=== PATIENT | female | born 1940 | race Caucasian/White ===

== ENCOUNTER 2025-08-09 15:28 | Inpatient (IN) | payer MEDICARE, OTHER, SELFPAY ==
[2025-08-09 15:29] VITALS: BP 145/86; PULSE 79; RESP 14; TEMP 36.7; O2SAT 99; BMI 23.8
--- NOTE | 2025-08-09 15:55 | EDS_ITS ---
HPI History of Present Illness HPI Narrative: 84-year-old female history of CHF. No prior visits to this facility. [place] out of town. Today was shopping and tripped and fell injuring her right hip. No prior hip surgery. Has an abrasion to her right elbow but denies any other complaints. No head injury no LOC. Family was with her witness the fall. Chief Complaint: Lower Extremity Injury Informant: patient and family Occured/Mechanism Mechanism/Context: Yes injury and Yes blunt trauma Onset/Context/Timing Onset: Today Context: Sudden Onset Timing: Continuous Quality of Pain: Sharp Current Severity: Moderate Maximum Severity: Moderate Associated Symptoms Associated Symptoms: Negative for Parasthesia, Weakness or Loss of Funtion Narrative Narrative: 84-year-old female fell injured her right hip. Prior similar symptoms: No Recent Illness/Hospitalization: No PFSH PFSH Home Medications Medication Instructions Recorded Last Taken Type CBD Oral (INFORMATIONAL USE See Rx Instructions .Ro [place] .COMPLEX 08/09/25 Unknown History ONLY-PT USES ORAL CBD) biotin 1 mg capsule 1 mg PO DAILY 08/09/25 Unkno wn History duloxetine 60 mg capsule,delayed 60 mg PO DAILY Unknown History release empagliflozin 25 mg tablet 12.5 mg PO DAILY 08/09/25 U nknown History (Jardiance) ergocalciferol (vitamin D2) 1,000 1,000 mcg PO DAILY 1 Unknown History unit capsule famotidine 20 mg tablet 20 mg PO BID PRN acid reflux 08/09/25 Unknown History metoprolol succinate 25 mg 25 mg PO BID 08/09/25 Unkno wn History tablet,extended release 24 hr montelukast 10 mg tablet 10 mg PO DAILY 08/09/25 Unkn own History rosuvastatin 10 mg tablet 10 mg PO DAILY 08/09/25 Unkn own History sacubitril 49 mg-valsartan 51 mg 1 tab PO BID 08/09/25 Unknown History tablet (Entresto) spironolactone 25 mg tablet 25 mg PO QHS 08/09/25 Unkn own History torsemide 10 mg tablet 5 mg PO QHS 08/09/25 Unknown History Allergy/AdvReac Type Severity Reaction Status Date / Time Environmental Allergies: Allergy Mild PT UNSURE Verified 08/09/25 15:39 Uncoded OF REACTION Social History Smoking Status: Never smoker ROS ROS ED ROS Narrative Denies recent illness. Constitutional Constitutional ED: Denies chills or fever(s) Eyes Eyes: Denies blurry vision ENT ENT ED: Denies ear pain Cardiovascular Cardiovascular: Denies chest pain Respiratory/Chest Respiratory/Chest: Denies cough or dyspnea Gastrointestinal Gastrointestinal: Denies abdominal pain Genitourinary Genitourinary ED: Denies dysuria or hematuria Musculoskeletal Musculoskeletal: Denies arthralgias Integumentary Denies abscess or Abrasions Neurologic Neurologic: Denies headache(s) Psychiatric Psychiatric: Denies anxiety or depression Endocrine Endocrinology: Denies polydipsia Hematologic/Lymphatic Hematologic/Lymphatic: Denies easy bleeding or easy bruising Allergic/Immunologic Allergic/Immunologic ED: Denies mouth swelling, tongue swelling or urticaria EXAM Physical Exam Narrative Exam Narrative: 84-year-old female lying in bed. Daughter and granddaughter at bedside. Vital signs are stable afebrile. Pulse ox 9 9% on room air no signs of pox. H EENT exam pupils round react light. Moist mucous members. Neck nontender no JVD. No trauma to her face or scalp. Back nontender. Lungs clear to auscultation bilaterally. Heart regular rhythm rate about 80 no murmur. Chest wall ribs nontender. Abdomen soft nontender. Pelvic girdle intact. Right hip shortened and rotated. Tender to palpation. Very limited range of motion due to pain. Right distal thigh, knee, right lower leg ankle and foot nontender. Normal DP pulse. Able wiggle her toes. Normal touch sensation. Left lower extremity nontender normal range of motion no deformity. Upper extremities small abrasion right elbow but full flexion extension of the elbow. No deformity. Both shoulders wrists and hands are nontender with normal range of motion. Neurologically she is awake alert. Answering questions and following commands. Const Vital Signs: 08/09/25 15:29 Temperature 98.1 F Temperature Source Oral Pulse Rate 79 Respiratory Rate 14 Blood Pressure 145/86 H Blood Pressure Mean 105 Pulse Ox 99 Oxygen Delivery Method Room Air MDM MDM MDM Narrative Medical decision making narrative: 84-year-old female fell concern for right hip fracture. X-ray being obtained. IV morphine and Zofran for pain and improvement nausea. Screening labs to be obtained suspecting she will be admitted for right hip fracture and surgical repair. Repeat exam patient doing well at 4:45 PM. She is resting comfortably pain medication. Initially she wanted to be transferred to [facility] in [place]. I spoke to the orthopedic PA in [place]. They would except her but may not be able to do the surgery until Tuesday. Patient preferred to have it done sooner and decide to stay here. I spoke with orthopedic on-call he is excepted the patient. Hospitalist will admit the patient. History & Record Review Discussion w/independent historian: Patient and Family Additional record(s) reviewed:: No prior records Lab Data Attestation: I reviewed the patient's lab results. Lab results narrative: CBC unremarkable. White count 8. H&H 12 and 39. Platelets 261. PT/INR PTT are 13, 134. Chemistries show a gap of 11. BUN and creatinine of 31.7. Glucose 85. Blood type a positive. Labs: Laboratory Results - last 24 hr 08/09/25 16:00 WBC 8.3 RBC 4.05 L Hgb 12.6 Hct 39.3 MCV 97.0 MCH 31.1 MCHC 32.1 RDW Std Deviation 49.2 H RDW Coeff of Ora 13.8 Plt Count 261 MPV 9.6 Immature Gran % (Auto) 0.700 Neut % (Auto) 67.4 Lymph % (Auto) 19.0 [place] % (Auto) 8.8 Eos % (Auto) 3.6 Baso % (Auto) 0.5 Absolute Neuts (auto) 5.6 Absolute Lymphs (auto) 1.58 Nucleated RBC % 0 PT 13.7 INR 1.0 APTT 34.6 Sodium 136 Potassium 4.3 Chloride 100 Carbon Dioxide 24.8 Anion Gap 11 BUN 31 H Creatinine 0.78 Estim Creat Clear Calc 41.57 L Est GFR (MDRD) Non-Af 76 BUN/Creatinine Ratio 39.2 H Glucose 85 Calcium 8.9 Blood Type A POSITIVE Antibody Screen NEGATIVE Radiography Chest X-Ray - ED: 1 View, Read by ED Physician, Read by Radiologist, Heart, Mediastinum, Bony Structures and Chronic Changes Diagnostic Testing: Clinical Impression(s) from Imaging Studies Chest X-Ray 08/09/25 16:05 IMPRESSION: Diffuse pulmonary vascular congestion and small right pleural effusion, superimposed consolidation not excluded. Reading Location: [facility] Hip/Pelvis X-Ray 08/09/25 16:05 IMPRESSION: Acute intertrochanteric right femoral fracture. Reading Location: [facility] Right hip x-ray and pelvis, 3 views, interpreted by myself shows right hip basicervical hip fracture. Otherwise chronic changes. Preop chest x-ray shows chronic changes. Normal cardiac silhouette. Chronic lung changes but no acute process. No effusion. No pneumonia. Rhythm Strip Rhythm Strip: Sinus bradycardia Rate: 58 Ectopy: None EKG Initial EKG: Attestation: I personally reviewed and interpreted this EKG as follows: Interpretation: No Acute Injury Pattern and Sinus Bradycardia Comments: Sinus bradycardia rate of 58 no acute signs of DC or ischemia. No dysrhythmia. Prior: No Prior Discharge Plan Dx/Rx/DC Orders Clinical Impression: Fall, Closed fracture of right hip, History of CHF (congestive heart failure) Disposition Disposition: Acute Care Hospital [facility]
--- NOTE | 2025-08-09 15:59 | EKG12_ITS ---
Test Reason : O Blood Pressure : */* mmHG Vent. Rate : 58 BPM Atrial Rate : 58 BPM P-R Int : 160 ms QRS Dur : 82 ms QT Int : 448 ms P-R-T Axes : 86 80 73 degrees QTcB Int : 439 ms Sinus bradycardia Otherwise normal ECG Confirmed by ISABELA KERNS, CATE ([id number]), story editor DUDLEY ROCHA ([id number]) on 08/12/2025 9:15:23 AM Referred By: Confirmed By: CATE MAR MD
--- NOTE | 2025-08-09 16:05 | RAD_ITS ---
PROCEDURE: HIP, UNI W/ PELVIS 2-3 VIEWS 08/09/2025 REASON FOR EXAM: FALL AND RT HIP PAIN TECHNIQUE: Procedure Code: RAD Modality: DX Procedure: HIP, UNI W/ PELVIS 2-3 VIEWS Laterality: Right COMPARISON: None. FINDINGS: BONES: Acute fracture in the intertrochanteric region of the proximal right femur. No focal osseous lesion. JOINTS: No dislocation. Moderate arthritic changes of the hips bilaterally. SOFT TISSUES: Mild swelling in the right hip soft tissues. RAD/HIP, UNI W/ Pelvis 2-3 Views IMPRESSION: Acute intertrochanteric right femoral fracture. Reading Location: [id number]
--- NOTE | 2025-08-09 16:05 | RAD_ITS ---
PROCEDURE: CHEST 1 VIEW 08/09/2025 REASON FOR EXAM: POSSIBLE PRE OP TECHNIQUE: Frontal view of the chest. COMPARISON: None available. FINDINGS: Hardware: None. Heart: The heart size is normal. Lungs: Small right pleural effusion, superimposed consolidation not excluded. Diffuse pulmonary vascular congestion. No definite pneumothorax Bones: The bones are unremarkable. RAD/Chest 1 View IMPRESSION: Diffuse pulmonary vascular congestion and small right pleural effusion, superim posed consolidation not excluded. Reading Location[facility]
[2025-08-09 16:18] LABS: Hematocrit 39.3 % (37-47); Hemoglobin 12.6 g/dL (12.0-15.0); Immature Granulocytes Count 0.060 X10^3/uL (0.0-0.0); Mean Corp Hgb Conc 32.1 g/dL (32-36); Mean Corpuscular Volume 97.0 fL (81-99); Mean Platelet Vol. 9.6 fl (6.2-12.0); NRBC Flagged by Analyzer 0 % (0-5); Platelet Count 261 K/mm3 (150-450); RBC Distribution Width CV 13.8 % (11.6-14.6); RBC Distribution Width SD 49.2 fl (35.1-43.9); Red Blood Count 4.05 M/mm3 (4.2-5.4); White Blood Count 8.3 K/mm3 (4.4-11.0)
[2025-08-09 16:34] LABS: Prothrombin Time (Protime)PT. 13.7 SECONDS (11.7-14.9)
[2025-08-09 16:35] LABS: Partial Thromboplast Time 34.6 Seconds (24.1-36.2)
[2025-08-09 17:18] LABS: Anion Gap 11 (5-15); BUN 31 mg/dL (4-19); BUN/Creat Ratio 39.2 RATIO (10-20); Calcium,Total 8.9 mg/dL (7.6-11.0); Carbon Dioxide 24.8 mmol/L (21.0-32.0); Chloride 100 mmol/L (98-108); Estimated Creatinine Clearance 41.57 ml/min (50-250); Glucose 85 mg/dL (70-99); Potassium 4.3 mmol/L (3.3-5.1)
--- NOTE | 2025-08-09 17:20 | HP.PCM.HOS_ITS ---
HPI - General General Date of Admission: 08/09/25 Date of Service: 08/09/25 Chief Complaint: Fall with right hip pain HPI Narrative SHEA CHAUHAN, is a 84 F who presented to [facility] ED on 08/09/2025 with right hip pain after a fall. Patient lives at home alone in the [place] area, has a daughter that lives in the [place] area. Her medical history is significant for chronic HFpEF, hypertension, hyperlipidemia, GERD and anxiety/depression. Patient was shopping with her daughter today when she tripped and fell onto her right side when getting back into the car. She had significant right hip pain after the fall. In the ED, hip/pelvis x-ray confirmed an acute intertrochanteric right femoral fracture. She was mildly hypertensive to the 140s systolic but otherwise in normal sinus rhythm and stable on room air at rest. CBC and BMP were benign. Chest x-ray read as showing diffuse pulmonary vascular congestion and small right pleural effusion. BNP normal. Case was discussed with orthopedics who recommended admission with tentative plan for surgery tomorrow. Hospitalist was then contacted for admission. I saw the patient at bedside in the ED. Patient was laying back flat in bed and was conversing normally. She reported significant right hip pain with any movement and was remaining quite still. She was diagnosed with HFpEF about 2 years ago and follows with cardiology in [place]. Notes that she had a significant right pleural effusion when she was initially diagnosed requiring thoracentesis, but since then her heart failure has been well- controlled on her home medication regimen. She denies any chest pain, shortness of breath or lower extremity swelling recently. Denies any orthopnea recently. She denies any other acute concerns currently. Will be admitted for further management. [facility] Cardiology office note from 07/02/25: Shea Chauhan is a 84 y.o. female presents today for her month follow up visit at the heart failure clinic for HFpEF which was likley a right pleural effusion in April 2023. She has had enlarged LAE and some tricuspid regurg in the past as well. Her weight is 106#, stable since last chf clinic visit 01/22/2025 (GDMT for HFpEF) Cardiac Medications include: (meds PRIOR to office visit 07/02/2025, changes listed under PLAN below) Empagliflozin 12.5 mg daily* Metoprolol suc 25 mg twice daily Potassium 20 meq daily Rosuvastatin 10 mg daily Entrestro 49/51 mg twice a day Spironolactone 25 mg daily Torsemide 10 mg daily PLAN Increase protein in the diet (we discussed different sources- ex, lao yogurt, protein powder in a smoothie, [employer] Power protein drinks (low carb, high protein)- making smoothies. Nuts, meat, salmon, etc. Decrease torsemide to 10 mg every other day and see how you feel. Jardiance should keep the fluid off. Hyperlipidemia- Rosuvastatin 10 mg daily-legs ache 05/17/2025 TC 163, Trig 80, HDL 45, LDL 102 12/19/2023 Echocardiogram 1. Technically fair quality study. 2. Normal left ventricular size and systolic function with LVEF by biplane measurement 71%. 3. Normal right ventricular size and systolic function. 4. Moderate left atrial enlargement. 5. Thickened/calcified degenerative valve disease without hemodynamically significant stenosis or regurgitation. 6. Normal pulmonary artery pressures with estimated RVSP 29 mmHg. [facility] Medical History (Updated 08/09/25 @ 18:36 by Arielle Taylor) Diverticulitis Hearing loss, left Hearing loss, right Depression Anxiety Osteoporosis Congestive heart failure (CHF) Hypertension Home Medications Medication Instructions Recorded Last Taken Type CBD Oral (INFORMATIONAL USE See Rx Instructions .Ro [place] .COMPLEX 08/09/25 Unknown History ONLY-PT USES ORAL CBD) biotin 1 mg capsule 1 mg PO DAILY 08/09/25 Unkno wn History duloxetine 60 mg capsule,delayed 60 mg PO DAILY Unknown History release empagliflozin 25 mg tablet 12.5 mg PO DAILY 08/09/25 U nknown History (Jardiance) ergocalciferol (vitamin D2) 1,000 1,000 mcg PO DAILY 1 Unknown History unit capsule famotidine 20 mg tablet 20 mg PO BID PRN acid reflux 08/09/25 Unknown History metoprolol succinate 25 mg 25 mg PO BID 08/09/25 Unkno wn History tablet,extended release 24 hr montelukast 10 mg tablet 10 mg PO DAILY 08/09/25 Unkn own History rosuvastatin 10 mg tablet 10 mg PO DAILY 08/09/25 Unkn own History sacubitril 49 mg-valsartan 51 mg 1 tab PO BID 08/09/25 Unknown History tablet (Entresto) spironolactone 25 mg tablet 25 mg PO QHS 08/09/25 Unkn own History torsemide 10 mg tablet 5 mg PO QHS 08/09/25 Unknown History Allergy/AdvReac Type Severity Reaction Status Date / Time Environmental Allergies: Allergy Mild PT UNSURE Verified 08/09/25 15:39 Uncoded OF REACTION Social History Smoking Status: Never smoker ROS Constitutional Constitutional: Denies chills, fatigue or fever(s) Eyes Eyes: Denies change in vision Cardiovascular Cardiovascular: Denies chest pain, dyspnea on exertion, edema, lightheadedness, orthopnea or palpitations Respiratory/Chest Respiratory/Chest: Denies shortness of breath at rest Gastrointestinal Gastrointestinal: Denies abdominal pain Genitourinary Genitourinary: Denies dysuria Musculoskeletal Musculoskeletal: Reports joint pain; Denies myalgias Neurologic Neurologic: Denies dizziness, focal weakness, headache(s), numbness or tingling Vital Signs Vital Signs Vital Signs: 08/09/25 15:29 Temperature 98.1 F Temperature Source Oral Pulse Rate 79 Respiratory Rate 14 Blood Pressure 145/86 H Blood Pressure Mean 105 Pulse Ox 99 Oxygen Delivery Method Room Air Weight Weight: 55.3 kg Body Mass Index (BMI) 23.8 Physical Exam Const alert, oriented x3, no apparent distress and average body habitus Constitutional Narrative: Pleasant elderly female, mildly fatigued appearing, laying back flat in bed and remaining still due to right hip pain with movement, otherwise conversing normally. General Appearance: cooperative HEENT normocephalic, head/scalp atraumatic, hearing grossly normal bilaterally, nasal mucous membranes and turbinates normal and moist oral mucous membranes Eyes PERRL, EOMs intact bilaterally and conjunctivae normal Neck full ROM Chest inspection of chest normal Resp normal respiratory effort and no use of accessory muscles Resp Narrative: Breathing comfortably on room air at rest. Mild crackles noted in bilateral lung bases but otherwise good air movement throughout with no wheezing noted. Cardio regular rate, regular rhythm, no murmurs and peripheral pulses 2+ throughout GI normal to inspection, nondistended, normoactive bowel sounds, soft to palpation, non-tender and non-distended Back/Spine normal ROM Extremity Extremity Narrative: Right hip shortened and rotated. Moderate tenderness to palpation on the lateral hip area. Skin no rashes or lesions noted Psych mental status grossly normal Results Lab / Micro Data 08/09/25 16:00 08/09/25 16:00 Labs: Laboratory Results - last 24 hr 08/09/25 16:00: WBC 8.3, RBC 4.05 L, Hgb 12.6, Hct 39.3, MCV 97.0, MCH 31.1, MCHC 32.1, RDW Std Deviation 49.2 H, RDW Coeff of Ora 13.8, Plt Count 261, MPV 9.6, Immature Gran % (Auto) 0.700, Neut % (Auto) 67.4, Lymph % (Auto) 19.0, [place] % (Auto) 8.8, Eos % (Auto) 3.6, Baso % (Auto) 0.5, Absolute Neuts (auto) 5.6, Absolute Lymphs (auto) 1.58, Nucleated RBC % 0, PT 13.7, INR 1.0, APTT 34.6, Sodium 136, Potassium 4.3, Chloride 100, Carbon Dioxide 24.8, Anion Gap 11, BUN 31 H, Creatinine 0.78, Estim Creat Clear Calc 41.57 L, Est GFR (MDRD) Non-Af 76, BUN/Creatinine Ratio 39.2 H, Glucose 85, Calcium 8.9, Blood Type A POSITIVE, Antibody Screen NEGATIVE Rhythm Strip Rhythm Strip: Sinus bradycardia Rate: 58 Ectopy: None Imaging Radiology Impression Chest X-Ray 08/09/25 16:05 IMPRESSION: Diffuse pulmonary vascular congestion and small right pleural effusion, superimposed consolidation not excluded. Reading Location: [facility] Assessment & Plan Assessment/Plan (1) Closed fracture of right hip: QUALIFIERS: Encounter type: initial encounter Qualified Code(s): S72.001A - Fracture of unspecified part of neck of right femur, initial encounter for closed fracture PLAN: Plan Patient is an 84-year-old female who presented to [facility] ED on 08/09/2025 with right hip pain after a fall. 1. Right hip fracture – Admit under inpatient status to [facility]. Orthopedic surgery consulted. PT/OT/case management consulted. Hip/pelvis x-ray on admit showed an acute intertrochanteric right femoral fracture. Preoperative evaluation as below. N.p.o. midnight with plan for surgery tomorrow. Pain control with scheduled Tylenol, p.o. oxycodone as needed and IV Dilaudid as needed. Bowel regimen ordered. Vitamin D level ordered. 2. Preoperative evaluation – NSQIP score: Patient has below average risk of any complication or serious complication given risk factors of age, female, mild systemic disease, hypertension and BMI 20. Has an average risk of discharge to nursing or rehab facility. – Labs/imaging: CBC and BMP benign on admit. Hemoglobin 12.6, creatinine 0.78. INR 1.0. Chest x-ray with mild volume overload, see cardiac eval below. No further labs or imaging needed preoperatively. – Cardiac eval: History of chronic HFpEF as below. Stable on room air in the ED with saturations in the mid to high 90s and laying flat in bed with no shortness of breath. No lower extremity swelling noted. Chest x-ray shows apparent diffuse pulmonary vascular congestion, but BNP is normal. Suspect patient could have mild degree of pulmonary edema in setting of chronic heart failure but low concern for severe vascular congestion. Last echo in 11/2023 with EF 70%, normal LV size and function, normal RV size and function, no pulmonary hypertension noted, moderate LA enlargement, no other concerning findings. Last outpatient appointment with cardiology on 07/02 and heart failure was stable then, no medication changes made. Patient denies any cardiac events since then. Will give patient 1 dose of IV Lasix 20 mg this evening. EKG showed normal sinus rhythm, no ST changes. Holding cardiac medications as below. No further cardiac testing needed preoperatively. – Medications: Will hold home Entresto, empagliflozin, torsemide and spironolactone preoperatively to minimize risk of intraoperative hypotension. Should be okay to restart postoperatively. – Prior procedural complications: None. – Recommendation: Patient is medically optimized for procedure. 3. Chronic HFpEF, hypertension, hyperlipidemia – Follows with cardiology at [facility]. Last office visit on 07/02/2025, reviewed note in [facility]. Diagnosed with HFpEF in 2022 when she presented with a large right-sided pleural effusion requiring thoracentesis. Heart failure has been well-controlled since that time. Normotensive in the ED on this admission. Holding Entresto, empagliflozin, torsemide and spironolactone preoperatively as above. Okay to continue home Toprol and rosuvastatin perioperatively. 4. GERD – Stable. Continue home famotidine. 5. Anxiety/depression – Stable. Continue home duloxetine. DVT prophylaxis: SCDs, will defer to orthopedics postoperatively CODE STATUS: Full code, verified Expected disposition: TBD Total clinical time spent by myself addressing the patient's medical issues, reviewing all the data, and collaborating with patient's care team: 78 minutes. Charges/Coding Visit Charges Inpatient E&M: 70135 Init Hosp L3
[2025-08-09 17:55] VITALS: BP 128/59; PULSE 79; RESP 14; TEMP 36.7; O2SAT 99
--- NOTE | 2025-08-09 18:19 | CONS.ORTHO ---
HPI Consult Data Date of Consult: 08/09/25 HPI Narrative Reason for Consultation: Right hip fracture HPI Narrative: BOOKER SERRANO, is a 84 F who presents to [facility] after a mechanical fall from standing height. She was out having lunch with family and was getting in her car, lost her balance and fell on her right side. She scraped her elbow and noted immediate pain in her right hip. She knew her hip was broken immediately. She denied any head injury, loss of consciousness or presyncopal symptoms. She denied any problems with her right hip prior to the injury. Community ambulator without assistive device. Past medical history significant for CHF. She follows with a cardiology group in [place]. She states her most recent checkups have been good without any recent exacerbations. She denies any anesthesia right hip or groin pain. Denies any prior anesthetic complications. Takes no blood thinners. No history of DVT or PE. She was brought to the emergency department x-rays revealed a right intertrochanteric femur fracture. She was admitted under her service to hospitalist. I saw the patient in consultation in the emergency department. Reports right hip pain otherwise denies any new symptoms. [facility] Home Medications Medication Instructions Recorded Last Taken Type CBD Oral (INFORMATIONAL USE See Rx Instructions .Route .COMPLEX 08/09/25 Unknown History ONLY-PT USES ORAL CBD) biotin 1 mg capsule 1 mg PO DAILY 08/09/25 Unknown History duloxetine 60 mg capsule,delayed 60 mg PO DAILY 08/09/25 Unknown History release empagliflozin 25 mg tablet 12.5 mg PO DAILY 08/09/25 Unknown History (Jardiance) ergocalciferol (vitamin D2) 1,000 1,000 mcg PO DAILY 08/09/25 Unknown History unit capsule famotidine 20 mg tablet 20 mg PO BID PRN acid reflux 08/09/25 Unknown History metoprolol succinate 25 mg 25 mg PO BID 08/09/25 Unknown History tablet,extended release 24 hr montelukast 10 mg tablet 10 mg PO DAILY 08/09/25 Unknown History rosuvastatin 10 mg tablet 10 mg PO DAILY 08/09/25 Unknown History sacubitril 49 mg-valsartan 51 mg 1 tab PO BID 08/09/25 Unknown History tablet (Entresto) spironolactone 25 mg tablet 25 mg PO QHS 08/09/25 Unknown History torsemide 10 mg tablet 5 mg PO QHS 08/09/25 Unknown History Allergy/AdvReac Type Severity Reaction Status Date / Time Environmental Allergies: Allergy Mild PT UNSURE Verified 08/09/25 15:39 Uncoded OF REACTION Social History Smoking Status: Never smoker ROS ROS Narrative 12 point review systems obtained, negative unless otherwise noted in HPI. Vital Signs Vital Signs Vital Signs: 08/09/25 15:29 08/09/25 17:55 Temperature 98.1 F 98.1 F Temperature Source Oral Pulse Rate 79 79 Respiratory Rate 14 14 Blood Pressure 145/86 H 128/59 H Blood Pressure Mean 105 82 Pulse Ox 99 99 Oxygen Delivery Method Room Air Weight Weight: 121 lb 14.65 oz Body Mass Index (BMI) 23.8 Physical Exam Narrative General -A&Ox3, NAD, appears stated age. Vital signs stable, afebrile. Respiratory -normal work of breathing, no intercostal retractions. CV -pulses regular, brisk capillary refill ×4 limbs. Abdomen-soft, nontender, nondistended. No guarding, rigidity, rebound tenderness. Musculoskeletal/neurologic -full range of motion nontender throughout bilateral upper extremities, left lower extremity with full sensation and strength in all dermatomes and myotomes. No midline cervical tenderness. Right lower extremity-shortened, externally rotated and abducted. Pain with logroll of the left lower extremity. Nontender throughout the right knee femoral shaft, tibial shaft and right foot/ankle. Brisk capillary refill. Sensation intact light touch L3-S1 dermatomes. DF, PF, EHL intact. DP, PT 2+. Pelvis is stable, nontender. Skin is intact without lacerations, abrasions. No ecchymosis noted. Lab / Micro Data Attestation: I reviewed the patient's lab results. 08/09/25 16:00 08/09/25 16:00 Labs: Laboratory Results - last 24 hr 08/09/25 16:00: WBC 8.3, RBC 4.05 L, Hgb 12.6, Hct 39.3, MCV 97.0, MCH 31.1, MCHC 32.1, RDW Std Deviation 49.2 H, RDW Coeff of Ora 13.8, Plt Count 261, MPV 9.6, Immature Gran % (Auto) 0.700, Neut % (Auto) 67.4, Lymph % (Auto) 19.0, [place] % (Auto) 8.8, Eos % (Auto) 3.6, Baso % (Auto) 0.5, Absolute Neuts (auto) 5.6, Absolute Lymphs (auto) 1.58, Nucleated RBC % 0, PT 13.7, INR 1.0, APTT 34.6, Sodium 136, Potassium 4.3, Chloride 100, Carbon Dioxide 24.8, Anion Gap 11, BUN 31 H, Creatinine 0.78, Estim Creat Clear Calc 41.57 L, Est GFR (MDRD) Non-Af 76, BUN/Creatinine Ratio 39.2 H, Glucose 85, Calcium 8.9, Blood Type A POSITIVE, Antibody Screen NEGATIVE Rhythm Strip Rhythm Strip: Sinus bradycardia Rate: 58 Ectopy: None Imaging Radiology Impression Chest X-Ray 08/09/25 16:05 IMPRESSION: Diffuse pulmonary vascular congestion and small right pleural effusion, superimposed consolidation not excluded. Reading [facility] Hip/Pelvis X-Ray 08/09/25 16:05 IMPRESSION: Acute intertrochanteric right femoral fracture. Reading Location: [facility] Assessment & Plan Assessment/Plan (1) Closed fracture of right hip: QUALIFIERS: Encounter type: initial encounter Qualified Code(s): S72.001A - Fracture of unspecified part of neck of right femur, initial encounter for closed fracture PLAN: Patient sustained a right intertrochanteric proximal femur fracture. -Closed, neurovascularly intact -Isolated injury -Recommending surgical intervention in the form of right femur cephalomedullary nailing -I discussed the procedure-its risks, benefits and alternative. Risks include but are not limited to bleeding, infection, loss of life or limb, risk of anesthesia, persistent pain or disability, need for additional surgery, nonunion, malunion, failure of orthopedic hardware, neurovascular injury, DVT or PE. Patient expressed understanding these risks and wished proceed with surgery. -Maintenance IV fluids, clear liquid diet after midnight n.p.o. at 2 hours prior to surgery -Type and screen -2 g Ancef on-call to the OR -Bedrest, heel protectors - Plan for surgery likely tomorrow pending optimization from primary. Thank you for this consultation.
[2025-08-09 18:30] VITALS: BMI 20.6
[2025-08-09 18:44] VITALS: BP 125/57; PULSE 64; RESP 16; TEMP 37.1; O2SAT 96
[2025-08-09 18:45] VITALS: BP 125/57; PULSE 69; RESP 16; TEMP 37.1; O2SAT 96
[2025-08-09 18:59] LABS: Pro- Brain NATRIURETIC PEPTIDE 569 pg/mL (<=1800)
[2025-08-09] MEDS: HYDROmorphone 0.5 MG/0.5 ML SYRINGE IV (20:01)
[2025-08-09 21:22] LABS: AST(SGOT) 21 U/L (<=31); Alanine Aminotransfer ALT/SGPT 17 U/L (<=34); Albumin, Serum 3.9 g/dL (3.4-4.8); Alkaline Phosphatase 71 U/L (35-104); Anion Gap 12 (5-15); BUN 26 mg/dL (4-19); BUN/Creat Ratio 36.2 RATIO (10-20); Calcium,Total 8.9 mg/dL (7.6-11.0); Carbon Dioxide 21.9 mmol/L (21.0-32.0); Chloride 102 mmol/L (98-108); Estimated Creatinine Clearance 38.27 ml/min (50-250); Globulin 3.4 g/dL (2.2-4.2); Glucose 105 mg/dL (70-99); Potassium 4.8 mmol/L (3.3-5.1)
[2025-08-09] MEDS: Senna/Docusate Sodium 1 Tablet 2 TABLET PO (22:13)
[2025-08-09 22:14] VITALS: BP 117/60; PULSE 66
[2025-08-09] MEDS: Metoprolol(XL)Succ 25 MG Tablet PO (22:14)
[2025-08-09] MEDS: Furosemide 20 MG/2 ML VIAL IV (22:23)
[2025-08-09 23:00] VITALS: BP 117/66; PULSE 62; RESP 16; TEMP 36.6; O2SAT 97
[2025-08-10] VITALS (21 sets, daily range): BP systolic 108–179; BP diastolic 55–84; PULSE 65–86; RESP 14–19; TEMP 36.1–37.2; O2SAT 91–100; BMI 20.6
[2025-08-10] MEDS: HYDROmorphone 0.5 MG/0.5 ML SYRINGE IV ×2 (00:17→06:48)
[2025-08-10 04:41] LABS: Hematocrit 40.3 % (37-47); Hemoglobin 13.2 g/dL (12.0-15.0); Mean Corp Hgb Conc 32.8 g/dL (32-36); Mean Corpuscular Volume 96.2 fL (81-99); Mean Platelet Vol. 9.6 fl (6.2-12.0); Platelet Count 257 K/mm3 (150-450); RBC Distribution Width CV 14.0 % (11.6-14.6); RBC Distribution Width SD 50.1 fl (35.1-43.9); Red Blood Count 4.19 M/mm3 (4.2-5.4); White Blood Count 12.1 K/mm3 (4.4-11.0)
[2025-08-10 04:58] LABS: Anion Gap 12 (5-15); BUN 27 mg/dL (4-19); BUN/Creat Ratio 31.7 RATIO (10-20); Calcium,Total 8.9 mg/dL (7.6-11.0); Carbon Dioxide 22.6 mmol/L (21.0-32.0); Chloride 102 mmol/L (98-108); Estimated Creatinine Clearance 35.19 ml/min (50-250); Glucose 121 mg/dL (70-99); Potassium 5.0 mmol/L (3.3-5.1)
[2025-08-10] MEDS: 0.9% Saline Lock 10 ML Syringe IV (06:48)
[2025-08-10] MEDS: 0.9% Normal Saline (1000mL) 1,000 ML 50 ML IV (09:25)
--- NOTE | 2025-08-10 09:26 | NURSING ---
Report given to surgery. This RN called Joce from pharmacy to inform him to send Cefazolin and Transexmic Acid Sent to OR.
--- NOTE | 2025-08-10 09:35 | CASEMGMT ---
Social Work SW met w/pt and then family, reviewed prior level of function and anticipated discharge plan. Pt's daughter Tanya, son Hemant and daughter in law Eunice are all present. PCP: Alonzo Echeverria Specialists: Dr. Briggs--orthopedics, [facility] Pharmacy: [facility] Insurance/Prescription Benefit: Medicare/Assurance Living Will/HPOA: Pt states has completed, thinks Brittany is POA and then Hemant, then Tanya. SW asked both pt and family to bring in documents. LNOK: Pt has six children Living Arrangements/Prior level of function: Pt lives home alone in [place], 5-6 steps into the home depending on the entrance. (5 in front, 6 in garage). Pt states there are another 5 steps to her bedroom. Pt is independent with ADLs, does have someone who helps w/cleaning. Pt still drives. MH: History of anxiety, on Celexa, she states it helps and was thinking of going off the medication. She states her physician encouraged her to stay on it through the weekend. Substance Use: No history DME: Pt has some DME from her late . She has a walker, has a cane she just purchased. Pt states she is remodelling her bathroom at present. HHC/SNF: No history of either. Pt states her had HHC in the past. PLAN: SNF vs Rehab. AUGUSTUS provided lists to family and pt from [facility] of both SNF and acute rehab, in both the [place] and [place] area, complete w/quality and resource use data, and in pt's insurance network. SW educated pt and family on the two levels of care. Family does think pt can do acute rehab. SW explained to pt and family we will see how pt does with therapy after surgery, see what is recommended and make the appropriate referrals. SW asked pt and family to pick three options for each level of care, and SW to follow up on Tuesday. CHENCHO Burnette
--- NOTE | 2025-08-10 10:00 | RAD_ITS ---
PROCEDURE: HIP MIN 2 VIEWS (PORTABLE) 08/10/2025 REASON FOR EXAM: RT HIP GAMMA NAIL TECHNIQUE: Procedure Code: RADH_P Modality: DX Procedure: HIP MIN 2 VIEWS (PORTABLE) Laterality: Right COMPARISON: Right hip x-ray 08/09/2025. FINDINGS: Bones: Intraoperative view of surgical correction of right femoral fracture with metallic hardware. Joints: The hip joint is well alignment. Soft tissues: No soft tissue abnormalities. Fluoro time: 29.2 seconds. RAD/Hip Min 2 Views (Portable) IMPRESSION: Intraoperative view of surgical correction of right femoral fracture with metal lic hardware. Near anatomical alignment. Reading Location: [id number]
--- NOTE | 2025-08-10 10:06 | PCM.PRE.AN2 ---
ASA Classification* ASA Classification ASA Classification: 3 Assessment & Plan Anesthesia* Anesthesia Assessment Anesthesia Assessment: Discussed sedation and/or anesthesia options, risks, benefits, and alternatives with patient/parents/legal guardian/POA. Questions invited. The patient/parents/legal guardian/POA seems to understand and agrees to proceed with anesthesia plan. Reviewed the physical assessment, medical history, allergy history and patient home medications list prior to surgery/procedure/anesthetic and documented any changes. Performed airway and anesthesia risk assessments. Anesthesia Type Anesthesia Type: General Anesthesia Focused Assessment* Temperature: 98.0 F Pulse Rate: 66 Blood Pressure: 108/55 Respiratory Rate: 18 Pulse Ox: 98 Oxygen Flow Rate (L/min): 2 Airway Assessment Mouth opens: >3 cm Mallampati Score: II Labs Anesthesia Preop lab: CBC WBC, (4.4-11.0) 12.1 K/mm3 H Today, 04:27 RBC, (4.2-5.4) 4.19 M/mm3 L Today, 04:27 Hgb, (12.0-15.0) 13.2 g/dL Today, 04:27 Hct, (37-47) 40.3 % Today, 04:27 Plt Count, (150-450) 257 K/mm3 Today, 04:27 CHEMISTRY Potassium, (3.3-5.1) 5.0 mmol/L Today, 04:27 Sodium, (133-145) 137 mmol/L Today, 04:27 BUN, (4-19) 27 mg/dL H Today, 04:27 Creatinine, (0.70-1.20) 0.87 mg/dL Today, 04:27 Glucose, (70-99) 121 mg/dL H Today, 04:27 COAG PT, (11.7-14.9) 13.7 SECONDS 08/09/25, 16:00 Pre-Assessment Diagnosis/Proposed Procedure Planned Operative Procedure(s): ORIF of Right Hip FX Anesthesia History Anesthesia History - machine molder: Anesthesia History - machine molder Hx Hospitalization Any Problems With Anesthesia No 08/09/25 18:50 Cholinesterase deficiency No 08/09/25 18:50 You/Your Family Experience No 08/09/25 18:50 fever (hyperthermia) with Relationship Recent Exposure to Contagious No 08/09/25 18:50 Disease Does patient have nerve No 08/09/25 18:50 stimulator Patient instructed to have No 08/09/25 18:50 device shut off --Does patient have Pacemaker No 08/10/25 08:36 or ICD? When Was Last Pacemaker Check QUESTION #4 FULL TEXT: You/Your Family Experience fever (hyperthermia) with Anesthesia Last Oral Intake Last Oral intake: Last Oral Intake NPO since Meds taken in AM with sips of water? Meds patient instructed to take am of surgery PONV PONV - machine molder: PONV - machine molder Female HX of Motion Sickness HX of N/V After Surgery Non-Smoker Duration of Surgery greater than 60 minutes Number of Risk Factors PONV Score Height & Weight Height & Weight: Anesthesia: Height & Weight Height 5 ft 08/10/25 08:36 Weight: 47.854 kg 08/10/25 08:36 Body Mass Index (BMI) 20.6 08/10/25 08:36 Respiratory Assessment Respiratory Assessment - machine molder: Respiratory Tract Infection Hx - machine molder Hx Respiratory Tract Infection No 08/09/25 18:50 STOP Sleep Apnea STOP Sleep Apnea - machine molder: STOP Sleep Apnea - machine molder Hx Hypertension Yes 08/09/25 18:30 Hx Sleep Apnea No 08/09/25 18:30 CPAP BIPAP Do you snore loudly (louder No 08/09/25 18:30 than talking or can be heard Do you often feel tired/ No 08/09/25 18:30 fatigued/ sleepy during daytime? Has anyone observed you stop No 08/09/25 18:30 breathing during sleep? STOP Results Negative 08/09/25 18:30 QUESTION #5 FULL TEXT : Do you snore loudly (louder than talking or can be heard through closed doors)? Tobacco Use History Tobacco Use History - machine molder: Tobacco Use History - machine molder Tobacco Use Smoking Status Never smoker 08/09/25 18:30 Hx Tobacco Use No 08/09/25 18:30 Years Smoking Packs Smoked per Day Smoking Cessation Date was within the last 15 years Hx Smoking Cessation Date Hx Smoking Cessation Counseling Hematologic Medial History Hematologic Hx - machine molder: Hematologic Medical Hx - managed care director Hx of Blood Transfusion No 08/09/25 18:30 Hx of Transfusion in last 3 No 08/09/25 18:30 Months Date of Last Transfusion (if within last 3 months) Ever experience any problems No 08/09/25 18:30 with transfusion(s)? Specify any problems Hx of Preganancy in last 3 N/A 08/09/25 18:30 Months Nurse Filling Out Transfusion TWOLF 08/09/25 18:30 & Questions: Date: 08/09/25 08/09/25 18:30 Time: 18:32 08/09/25 18:30 Patient unable to answer at this time (ie. confused, unrespo /Reproduction History /Reproductive History - machine molder: /Reproductive Hx- machine molder Hx Now No 08/09/25 18:50 Gestational Age (in weeks): EDC: Hx Hx Para Hx Section SAB No 08/09/25 18:50 Active Medications Active Medications: Current Medications Generic Name Dose Route Start Last Admin Trade Name Freq PRN Reason Stop Dose Admin Acetaminophen 1,000 mg 08/09/25 22:00 08/10/25 06:26 Acetaminophen 500 Mg Tablet PO Not Given Q8 VANESSA Atorvastatin Calcium 20 mg 08/09/25 22:00 08/09/25 22:22 Atorvastatin Calcium 20 Mg Tablet PO 20 mg QHS VANESSA Administration Cholecalciferol 25 mcg 08/10/25 10:00 08/10/25 07:32 Cholecalciferol (Vit D3) 25 Mcg Tablet (1,000 Units) PO Not Given DAILY VANESSA Duloxetine HCl 60 mg 08/10/25 10:00 08/10/25 07:31 Duloxetine Hcl 60 Mg Capsule PO Not Given DAILY VANESSA Famotidine 20 mg 08/09/25 18:29 Famotidine 20 Mg Tablet PO BID PRN acid reflux Hydromorphone HCl 0.5 mg 08/09/25 18:29 08/10/25 06:48 Hydromorphone 0.5 Mg/0.5 Ml Syringe IV 0.5 mg Q4H PRN PRN Administration Pain Score 6-10 Sodium Chloride 250 mls @ 15 mls/hr 08/09/25 18:39 IV .[id number] PRN Additional IVPB Infusion Sodium Chloride 250 mls @ 15 mls/hr 08/09/25 18:39 IV .[id number] PRN Saline Flush Sodium Chloride 1,000 mls @ 50 mls/hr 08/10/25 09:03 08/10/25 09:25 IV 08/11/25 05:02 50 mls/hr .Q20H ONE Administration Melatonin 3 mg 08/09/25 18:29 Melatonin 3 Mg Tablet PO QHS PRN PRN INSOMNIA Metoprolol Succinate 25 mg 08/09/25 22:00 08/09/25 22:14 Metoprolol(Xl)Succ 25 Mg Tablet PO 25 mg BID VANESSA Administration Protocol Montelukast Sodium 10 mg 08/10/25 10:00 08/10/25 07:32 Montelukast 10 Mg Tablet PO Not Given DAILY VANESSA Ondansetron HCl 4 mg 08/09/25 18:29 Ondansetron 4 Mg/2 Ml Vial IV Q8H PRN PRN NAUSEA/VOMITING Oxycodone HCl 5 mg 08/09/25 18:29 08/09/25 22:22 Oxycodone 5 Mg Tablet PO 5 mg Q4H PRN PRN Administration Pain Score 4-10 Senna/Docusate Sodium 2 tablet 08/09/25 22:00 08/10/25 07:31 Senna/Docusate Sodium 1 Tablet PO Not Given BID VANESSA Sodium Chloride 10 - 40 ml 08/09/25 18:39 08/10/25 06:48 0.9% Saline Lock 10 Ml Syringe IV 10 ml UD PRN Administration SALINE FLUSH PFSH Medical History (Updated 08/09/25 @ 18:36 by Arielle Taylor) Diverticulitis Hearing loss, left Hearing loss, right Depression Anxiety Osteoporosis Congestive heart failure (CHF) Hypertension Home Medications Medication Instructions Recorded Last Taken Type CBD Oral (INFORMATIONAL USE See Rx Instructions .Route .COMPLEX 08/09/25 Unknown History ONLY-PT USES ORAL CBD) biotin 1 mg capsule 1 mg PO DAILY 08/09/25 Unknown History duloxetine 60 mg capsule,delayed 60 mg PO DAILY 08/09/25 Unknown History release empagliflozin 25 mg tablet 12.5 mg PO DAILY 08/09/25 Unknown History (Jardiance) ergocalciferol (vitamin D2) 1,000 1,000 mcg PO DAILY 08/09/25 Unknown History unit capsule famotidine 20 mg tablet 20 mg PO BID PRN acid reflux 08/09/25 Unknown History metoprolol succinate 25 mg 25 mg PO BID 08/09/25 Unknown History tablet,extended release 24 hr montelukast 10 mg tablet 10 mg PO DAILY 08/09/25 Unknown History rosuvastatin 10 mg tablet 10 mg PO DAILY 08/09/25 Unknown History sacubitril 49 mg-valsartan 51 mg 1 tab PO BID 08/09/25 Unknown History tablet (Entresto) spironolactone 25 mg tablet 25 mg PO QHS 08/09/25 Unknown History torsemide 10 mg tablet 5 mg PO QHS 08/09/25 Unknown History Allergy/AdvReac Type Severity Reaction Status Date / Time Environmental Allergies: Allergy Mild PT UNSURE Verified 08/09/25 15:39 Uncoded OF REACTION Social History Smoking Status: Never smoker Review of Systems (Anesthesia) ROS Narrative System reviewed and no additional complaints, except as documented.
--- NOTE | 2025-08-10 10:14 | EKG12_ITS ---
Test Reason : PRE OP Blood Pressure : */* mmHG Vent. Rate : 69 BPM Atrial Rate : 69 BPM P-R Int : 158 ms QRS Dur : 72 ms QT Int : 420 ms P-R-T Axes : 84 75 70 degrees QTcB Int : 450 ms Sinus rhythm with Premature supraventricular complexes Otherwise normal ECG When compared with ECG of 09-Aug-2025 16:20, MANUAL COMPARISON REQUIRED DATA IS UNCONFIRMED Confirmed by ISABELA KERNS, CATE ([id number]), acquisition editor RAFFI DEAN ([id number]) on 08/12/2025 11:45:27 AM Referred By: Confirmed By: CATE MAR MD
[2025-08-10] MEDS: 0.9% Normal Saline (1000mL) 1,000 ML 1000 ML IV (10:26)
[2025-08-10] MEDS: Cefazolin 1 GM/5 ML Vial 2 GM IV (10:41)
[2025-08-10] MEDS: TRANEXAMIC ACID 1,000 MG/10 ML ML 1 MG IV (10:43)
[2025-08-10] MEDS: Bupiv/Epi 0.25% 30 ML Vial (10:54)
--- NOTE | 2025-08-10 11:10 | PCM.OPRPT ---
Operative Report (Standard) Operative Information Date of Procedure: 08/10/25 Pre-Operative Diagnosis: Right intertrochanteric femur fracture Post-Operative Diagnosis: Right intertrochanteric femur fracture Surgery/Procedure Performed: Right hip cephalomedullary nailing powder mill operator: Yes Staining Machine Operator: Narda Quesada Tasks completed by speech and language assistant: Opening & closing, Implanting device and Retracting Additional assistant professor of psychology?: No Type of Anesthesia: General RN Documented Start/Stop Times: Operation Date: 08/10/25 10:30 Case Time Anesthesia Start 08/10/25 10:25 Into Room 08/10/25 10:25 Procedure Start 08/10/25 10:45 Procedure End 08/10/25 11:00 Procedure Start Time: 10:45 Procedure Stop Time: 11:00 Select all DRAINS/GRAFTS/IMPLANTS that apply: Implanted device Implanted device details: [employer] gamma 4 180 x 10 several medullary nail with 85 mm lag screw and 35 mm interlocking screw Estimated Blood Loss: 100 cc Specimen collected: No Description of surgery: Patient was seen in preoperative holding area. She was identified by name, medical record number, date of . The operative extremity was marked with a surgical marker. We confirmed informed consent with the patient and questions were answered to her satisfaction. Patient was brought to the operative suite, and general anesthesia was induced on her hospital bed. Endotracheal tube was secured. After adequate anesthesia, patient was transferred to a fracture table with all bony prominences being well-padded. A perineal post was placed to secure the patient on the table. We then applied a ski boot which was well-padded to the operative extremity. The well leg was dropped into extension and secured to the axial post of the fracture table with a pillow and Coban. The right arm was brought across patient's chest with a blanket on her chest. We then performed a closed reduction maneuver with external rotation, traction, internal rotation and adduction. Fluoroscopic images were obtained. Fracture appeared to be acceptably reduced following closed reduction. We then prepped and draped the right lower extremity in normal, sterile orthopedic fashion. A timeout was performed with all parties in attendance in agreement with the side, site, and operation be performed. 2 g Ancef was administered prior to incision. No concerns were voiced and we elected to proceed. I first used fluoroscopy to delmy the level of the fracture and planned incision for insertion of the cephalomedullary nail device. In line with the long axis of the femur, 4 fingerbreadths proximal to the tip of the greater trochanter, a full-thickness skin incision was planned.. Skin was sharply incised with 10 blade scalpel, carried into the subcutaneous tissues. The IT band was encountered and split and planned trajectory of the nail placement. The greater trochanter was then able to be palpated digitally. I then placed a threaded guidewire just medial to the tip of the greater trochanter and in the anterior third of it on the lateral. Opening reamer was then placed over top of the guidewire after placement was confirmed on C arm. A ball-tipped guidewire then was passed into the intramedullary canal after reamer was removed. We used C arm to confirm our placement within the bone. Reduction was again confirmed. We selected her nail to be 18 cm x 11 mm diameter. Nail was assembled on the back table. We placed it over the ball-tipped guidewire and impacted to an appropriate depth. Rotation was confirmed on the lateral. Drill sleeve was placed through the targeting guide. We drilled the pin for the lag screw at an appropriate position and depth, tip to apex distance less than 25 mm on AP and lateral combined. Depth gauge was used to measure the length of the screw, 85 mm. We then used the cannulated drill to drill to an appropriate depth. Drill was removed, drill pin left in place. Lag screw was placed over top of the drill pin and tightened to an appropriate depth. Setscrew was then placed and tightened, and then turned back a quarter turn to allow the lag screw to slide. I then drilled for a static interlocking screw in the distal portion of the screw utilizing the outrigger. Skin was incised full-thickness down the level of the IT band which was also split in line with the skin incision. I drilled bicortically through the distal interlocking slot of the nail. I measured for a 35 mm interlocking screw which was placed by hand with excellent purchase. Instruments were removed as well as the outrigger for the nail. Final fluoroscopic images were obtained at the hip. Final fluoroscopic images were obtained. We irrigated the wounds copiously with normal saline solution. Hemostasis was excellent at this point. We then closed the deeper layers, IT band with 0 Vicryl. Intradermal buried stitches of 2-0 Vicryl were utilized and skin finally reapproximated with skin fidel. Sterile compression dressing of Xeroform, 4 x 4's, and Tegaderm was applied. Patient tolerated procedure well without complication. She was transferred back to her hospital bed and subsequently to PACU in stable condition. Intraoperative medications: 2 g Ancef IV Post Operative Plan: Weightbearing: Weightbearing as tolerated right lower extremity with a walker Antibiotics: Ancef1 g x 3 doses postoperatively, 1 dose given preoperatively DVT Prophylaxis: Lovenox to start tomorrow morning x 28 days postoperatively Enriquez: None Dressing: Dry sterile dressing changes daily and as needed for saturation X-Rays: 2 weeks postop in the office Follow-up: 2 weeks post-operatively with me in the office Surgical Findings: Stable right intertrochanteric femur fracture. Complications Complications: No Admit VTE Documentation VTE Present on Admission: No VTE Mechan Device Prophylaxis: SCD's and Knee High LYNNETTE Hose VTE Pharm Prophylaxis ordered?: Yes
--- NOTE | 2025-08-10 11:12 | PCM.POST.ANE ---
Anesthesia: Postop Eval I Current Vital Signs Temperature: 97 F Pulse Rate: 70 Blood Pressure: 179/74 Respiratory Rate: 14 Pulse Ox: 97 Assessment Airway patent: Yes Spontaneous unlabored respirations: Yes nausea: No Vomiting: No Anesthesia Complication: No Fluid Hydration Crystalloid volume administer (ml): 1,000 Total IV fluid infused: 1,000 Progress Note Anesthesia document: Postop Eval 1 completed: Yes
--- NOTE | 2025-08-10 11:13 | PCM.POSTANE2 ---
Anesthesia Postop Eval I Sum Postop Eval Completion status Anesthesia document: Postop Eval 1 completed: Yes Anesthesia Postop Eval I Summary Anesthesia Postop Eval I Summary: Anesthesia Postop Eval I: Assessment Summary Airway patent Yes 08/10/25 11:12 Spontaneous unlabored Yes 08/10/25 11:12 respirations Mental status nausea No 08/10/25 11:12 Vomiting No 08/10/25 11:12 Anesthesia Postop Eval I: Fluid Summary Crystalloid volume administer 1,000 08/10/25 11:12 (ml) Colloids volume administered ( ml) Blood Product volume administered (ml) Total IV fluid infused 1,000 08/10/25 11:12 Anesthesia Postop Eval I: Summary Notes Anesthesia Complication No 08/10/25 11:12 Anesthesia Complication Comment: Post-operative progress note Anesthesia: Postop Eval II Evaluation Mental status: Awake Pain Level: 0 nausea: No Vomiting: No
--- NOTE | 2025-08-10 12:08 | CASEMGMT ---
Social Work SW met w/pt and family(sons Sincere and Gregorio, daughter Felicia) in room to review prior level of function and anticipated discharge plan. PCP: Dr. Flannery Specialists: Neurologist at [facility], pt could not remember the name Preferred Pharmacy: [facility] Insurance: Medicare Prescription Benefit: No, pt pays for medications out of pocket Living Will/HPOA: Pt completed POA for HC w/SW, put son Sincere as POA and daughter Felicia as the alternate. SW gave pt's son the originals and copies, and copies placed on the chart. LNOK: Pt has 5 children. Living Arrangements/Prior level of function: Pt lives home alone in a one story home, independent at home with ADLs, drives still. Pt does have someone who comes to clean once every two weeks. There is a stair lift to the basement if needed, a railing by the steps into the basement. DME: Pt does not use DME but has a walker, cane, shower chair, grab bars. HHC/SNF: Pt has had HHC in the past, been to [facility] in the past. Pt has not been to SNF in the past. PLAN: SW provided to pt and family list of jail facilities and rehab facilities via [employer], of facilities in network w/pt's insurance, in pt's preferred geographic area and complete w/quality and resource use data. SW educated pt and family on the difference in levels of care, and explained would be good for them to review both and make choices off of both lists. SW explained will follow up Tuesday once pt has had surgery and PT, to see what will be the most appropriate level of care and make referrals based on this. Pt would prefer to go home, states her friend Christy Pride who is a retired [employer] can help her. SW gently suggested this may not work if she needs a lot of assist walking. Pt states understanding. Family in agreement w/pt going to rehab in SNF or rehab facility. Plan likely SNF or rehab, SW to follow up Tuesday w/pt and family on choices. CHENCHO Burnette
--- NOTE | 2025-08-10 14:21 | NURSING ---
Pt tolerated clear liquid diet at this time. Advanced diet to regular diet.
--- NOTE | 2025-08-10 16:11 | PN.HOSP_ITS ---
Reason for Visit Chief Complaint: Fall with right hip pain Subjective Subjective Patient seen postoperatively, reports some pain in her leg postop but just took Tylenol, discussed additional pain medication available if necessary, no new or acute complaints Objective Data Objective Data Vital Signs: Vital Signs Temp Pulse Resp BP Pulse Ox O2 Del Method O2 Flow Rate 99.0 F 71 17 117/57 L 95 Room Air 2 08/10/25 14:20 08/10/25 14:20 08/10/25 14:20 08/10/25 14:20 08/10/25 14:20 08/10/25 14:20 08/10/25 12:24 Oxygen Flow Rate (L/min) 2 Oxygen Delivery Method Room Air Weight: 47.854 kg Body Mass Index (BMI) 20.6 Intake & Output: Intake and Output for Last 24 Hours 08/08/25 08/09/25 08/10/25 23:59 23:59 23:59 Intake Total 0 / 0 1000 / 1000 Output Total 850 / 850 Balance 0 / -350 150 / 150 Lab / Micro Data 08/10/25 04:27 08/10/25 04:27 Labs: Laboratory Results - last 24 hr 08/09/25 16:00: WBC 8.3, RBC 4.05 L, Hgb 12.6, Hct 39.3, MCV 97.0, MCH 31.1, MCHC 32.1, RDW Std Deviation 49.2 H, RDW Coeff of Ora 13.8, Plt Count 261, MPV 9.6, Immature Gran % (Auto) 0.700, Neut % (Auto) 67.4, Lymph % (Auto) 19.0, Riley % (Auto) 8.8, Eos % (Auto) 3.6, Baso % (Auto) 0.5, Absolute Neuts (auto) 5.6, Absolute Lymphs (auto) 1.58, Nucleated RBC % 0, PT 13.7, INR 1.0, APTT 34.6, Sodium 136, Potassium 4.3, Chloride 100, Carbon Dioxide 24.8, Anion Gap 11, BUN 31 H, Creatinine 0.78, Estim Creat Clear Calc 41.57 L, Est GFR (MDRD) Non-Af 76, BUN/Creatinine Ratio 39.2 H, Glucose 85, Calcium 8.9, NT pro BNP II 569, Blood Type A POSITIVE, Antibody Screen NEGATIVE 08/09/25 20:55: Sodium 135, Potassium 4.8, Chloride 102, Carbon Dioxide 21.9, Anion Gap 12, BUN 26 H, Creatinine 0.71, Estim Creat Clear Calc 38.27 L, Est GFR (MDRD) Non-Af 84, BUN/Creatinine Ratio 36.2 H, Glucose 105 H, Calcium 8.9, Total Bilirubin 0.58, AST 21, ALT 17, Alkaline Phosphatase 71, Total Protein 7.2, Albumin 3.9, Globulin 3.4, Albumin/Globulin Ratio 1.2 08/10/25 04:27: WBC 12.1 H, RBC 4.19 L, Hgb 13.2, Hct 40.3, MCV 96.2, MCH 31.5, MCHC 32.8, RDW Std Deviation 50.1 H, RDW Coeff of Ora 14.0, Plt Count 257, MPV 9.6, Sodium 137, Potassium 5.0, Chloride 102, Carbon Dioxide 22.6, Anion Gap 12, BUN 27 H, Creatinine 0.87, Estim Creat Clear Calc 35.19 L, Est GFR (MDRD) Non-Af 67, BUN/Creatinine Ratio 31.7 H, Glucose 121 H, Calcium 8.9 Radiography Diagnostic Testing: Radiology Impression Chest X-Ray 08/09/25 16:05 IMPRESSION: Diffuse pulmonary vascular congestion and small right pleural effusion, superimposed consolidation not excluded. Reading Location: [facility] Hip/Pelvis X-Ray 08/09/25 16:05 IMPRESSION: Acute intertrochanteric right femoral fracture. Reading Location: [facility] Hip X-Ray 08/10/25 10:00 IMPRESSION: Intraoperative view of surgical correction of right femoral fracture with metallic hardware. Near anatomical alignment. Reading Location: [facility] Rhythm Strip Rhythm Strip: Sinus bradycardia Rate: 58 Ectopy: None Physical Exam Narrative General: Alert, no apparent distress HEENT: Atraumatic, normocephalic Eyes: Anicteric, normal conjunctiva, extraocular movements grossly intact Neck: Supple Respiratory: Clear to auscultation bilaterally, normal respiratory effort Cardiovascular: Regular rate and rhythm GI: Soft, nontender, nondistended Extremities: No edema Musculoskeletal: Moving all extremities in bed Neuro: No overt focal neurological deficits Skin: No rashes appreciated Psych: Cooperative Assessment & Plan Assessment/Plan (1) Closed fracture of right hip: QUALIFIERS: Encounter type: initial encounter Qualified Code(s): S72.001A - Fracture of unspecified part of neck of right femur, initial encounter for closed fracture PLAN: Plan Patient is an 84-year-old female who presented to [facility] ED on 08/09/2025 with right hip pain after a fall. # Acute right intratrochanteric femoral fracture - Seen on hip/pelvis x-ray - Patient status post surgery today with Dr. Barajas - Pain control/supportive care - PT/OT - Case management #Chronic heart failure with preserved ejection fraction -Daily weights -I's and O's - Patient seemed dry this a.m. so she was given gentle IV fluids specially she was still n.p.o., vitally stable and saturating 95% on room air, does not appear to be volume overloaded at time of my exam - Follows with cardiology at [facility] - Has diagnosis of heart failure with preserved ejection fraction -Last echo in 11/2023 with EF 70%, normal LV size and function, normal RV size and function, no pulmonary hypertension noted, moderate LA enlargement, no other concerning findings - Unclear if she ever had component of reduced ejection fraction given she is on spironolactone and Entresto as well - Patient's metoprolol continued, if blood pressure remains stable will begin resuming patient's other home medications - Holding on resuming torsemide at this time as patient appears very dry this a.m. and required a little bit of gentle IV fluids, monitoring volume status, will resume pending clinical course #GERD -Continue famotidine #Depression/anxiety -Continue home medications #DVT ppx: Lovenox subQ Conchis Carey MD Charges/Coding Visit Charges Inpatient E&M: 67826 Subs Hosp L2
[2025-08-10] MEDS: Cefazolin 1 GM/50 ML BAG IV (18:20)
[2025-08-10] MEDS: Senna/Docusate Sodium 1 Tablet 2 TABLET PO (21:52)
[2025-08-10] MEDS: Metoprolol(XL)Succ 25 MG Tablet PO (21:52)
[2025-08-11] VITALS (7 sets, daily range): BP systolic 110–165; BP diastolic 60–89; PULSE 57–88; RESP 15–18; TEMP 36.8–37.2; O2SAT 94–97; BMI 21.2
[2025-08-11] MEDS: Cefazolin 1 GM/50 ML BAG IV ×2 (02:38→11:25)
[2025-08-11 04:38] LABS: Hematocrit 37.3 % (37-47); Hemoglobin 12.2 g/dL (12.0-15.0); Mean Corp Hgb Conc 32.7 g/dL (32-36); Mean Corpuscular Volume 95.6 fL (81-99); Mean Platelet Vol. 9.7 fl (6.2-12.0); Platelet Count 234 K/mm3 (150-450); RBC Distribution Width CV 14.2 % (11.6-14.6); RBC Distribution Width SD 49.4 fl (35.1-43.9); Red Blood Count 3.90 M/mm3 (4.2-5.4); White Blood Count 14.5 K/mm3 (4.4-11.0)
[2025-08-11 05:12] LABS: Anion Gap 11 (5-15); BUN 23 mg/dL (4-19); BUN/Creat Ratio 36.3 RATIO (10-20); Calcium,Total 9.3 mg/dL (7.6-11.0); Carbon Dioxide 21.3 mmol/L (21.0-32.0); Chloride 104 mmol/L (98-108); Estimated Creatinine Clearance 38.27 ml/min (50-250); Glucose 114 mg/dL (70-99); Potassium 4.3 mmol/L (3.3-5.1)
[2025-08-11] MEDS: Senna/Docusate Sodium 1 Tablet 2 TABLET PO ×2 (08:14→22:01)
[2025-08-11] MEDS: Cholecalciferol (VIT D3) 25 MCG TABLET (1,000 UNITS) PO (08:15)
[2025-08-11] MEDS: Metoprolol(XL)Succ 25 MG Tablet PO ×2 (08:15→22:00)
--- NOTE | 2025-08-11 08:55 | PN.ORTHO_ITS ---
Subjective Subjective Patient seen and examined. Up to chair this morning. Positive flatus and BM since surgery. Old. Denies fevers and chills, nausea or vomiting, and shortness of breath. Objective Data Objective Data Vital Signs: Vital Signs Temp Pulse Resp BP Pulse Ox O2 Del Method O2 Flow Rate 98.4 F 81 16 142/75 H 96 Room Air 2 08/11/25 08:00 08/11/25 08:15 08/11/25 08:00 08/11/25 08:15 08/11/25 08:00 08/11/25 08:00 08/10/25 12:24 Oxygen Flow Rate (L/min) 2 Oxygen Delivery Method Room Air Weight: 108 lb 7.479 oz Body Mass Index (BMI) 21.2 Intake & Output: Intake and Output for Last 24 Hours 08/09/25 08/10/25 08/11/25 23:59 23:59 23:59 Intake Total 0 / 0 1818.33 / 1918.33 150 / 150 Output Total 1100 / 1100 Balance 0 / -350 718.33 / 818.33 150 / 150 Lab / Micro Data 08/11/25 04:20 08/11/25 04:20 Labs: Laboratory Results - last 24 hr 08/11/25 04:20: WBC 14.5 H, RBC 3.90 L, Hgb 12.2, Hct 37.3, MCV 95.6, MCH 31.3, MCHC 32.7, RDW Std Deviation 49.4 H, RDW Coeff of Ora 14.2, Plt Count 234, MPV 9.7, Sodium 136, Potassium 4.3, Chloride 104, Carbon Dioxide 21.3, Anion Gap 11, BUN 23 H, Creatinine 0.64 L, Estim Creat Clear Calc 38.27 L, Est GFR (MDRD) Non- Af 88, BUN/Creatinine Ratio 36.3 H, Glucose 114 H, Calcium 9.3 Radiography Diagnostic Testing: Radiology Impression Hip X-Ray 08/10/25 10:00 IMPRESSION: Intraoperative view of surgical correction of right femoral fracture with metallic hardware. Near anatomical alignment. Reading Location: [facility] Rhythm Strip Rhythm Strip: Sinus bradycardia Rate: 58 Ectopy: None Physical Exam Narrative General - A&Ox3, NAD. VSS/AF Right lower extremity -incisional dressing C/D/I. SILT Sural, Saphenous, SPN, DPN, Tibial N. distributions. DP, PT 2+. BCR. DF, PF, EHL /5. No calf TTP. Assessment & Plan Assessment/Plan (1) Closed fracture of right hip: QUALIFIERS: Encounter type: initial encounter Qualified Code(s): S72.001A - Fracture of unspecified part of neck of right femur, initial encounter for closed fracture PLAN: POD# 1 s/p right femur CMN - Pain control - Medicine following for medical management - PT/OT -weightbearing as tolerated right lower extremity - DVT PPX -Multimodal with SCDs bilateral mobilization, LYNNETTE zamorano, Lovenox x 28 days postoperatively - Case management - D/C planning Patient doing very well from my standpoint. Suspect need for placement. Follow-up 2 weeks postoperatively for x-rays and staple removal. Continue Lovenox postoperatively for 28 days. I will sign off at this time. Okay to remove surgical dressing postoperative day #5 and shower at that time with no drainage. Otherwise continue dry sterile dressing changes as needed. Thank for this consultation. Please do not hesitate to call if any questions or concerns arise.
[2025-08-11] MEDS: 0.9% Saline Lock 10 ML Syringe IV (11:25)
--- NOTE | 2025-08-11 15:19 | PCM.PN.HOSP ---
Reason for Visit Chief Complaint: Fall with right hip pain Subjective Subjective Patient reports the SCDs and compression socks are causing some pain in her lower extremities and she does not like that feeling but otherwise feeling fairly well, has been able to get up and ambulate with therapy and feels like her hip is doing fairly well Objective Data Objective Data Vital Signs: Vital Signs Temp Pulse Resp BP Pulse Ox O2 Del Method O2 Flow Rate 98.3 F 57 L 18 110/60 96 Room Air 2 08/11/25 14:00 08/11/25 14:00 08/11/25 14:00 08/11/25 14:00 08/11/25 14:00 08/11/25 14:00 08/10/25 12:24 Oxygen Flow Rate (L/min) 2 Oxygen Delivery Method Room Air Weight: 49.2 kg Body Mass Index (BMI) 21.2 Intake & Output: Intake and Output for Last 24 Hours 08/09/25 08/10/25 08/11/25 23:59 23:59 23:59 Intake Total 0 / 0 1818.33 / 1918.33 1050 / 1050 Output Total 1100 / 1100 Balance 0 / -350 718.33 / 818.33 1050 / 1050 Lab / Micro Data 08/11/25 04:20 08/11/25 04:20 Labs: Laboratory Results - last 24 hr 08/11/25 04:20: WBC 14.5 H, RBC 3.90 L, Hgb 12.2, Hct 37.3, MCV 95.6, MCH 31.3, MCHC 32.7, RDW Std Deviation 49.4 H, RDW Coeff of Ora 14.2, Plt Count 234, MPV 9.7, Sodium 136, Potassium 4.3, Chloride 104, Carbon Dioxide 21.3, Anion Gap 11, BUN 23 H, Creatinine 0.64 L, Estim Creat Clear Calc 38.27 L, Est GFR (MDRD) Non-Af 88, BUN/Creatinine Ratio 36.3 H, Glucose 114 H, Calcium 9.3 Rhythm Strip Rhythm Strip: Sinus bradycardia Rate: 58 Ectopy: None Physical Exam Narrative General: Alert, no apparent distress HEENT: Atraumatic, normocephalic Eyes: Anicteric, normal conjunctiva, extraocular movements grossly intact Neck: Supple Respiratory: Clear to auscultation bilaterally, normal respiratory effort Cardiovascular: Regular rate and rhythm GI: Soft, nontender, nondistended Extremities: No edema, presently has compression stockings on Musculoskeletal: Moving all extremities in bed Neuro: No overt focal neurological deficits Skin: No rashes appreciated Psych: Cooperative Assessment & Plan Assessment/Plan (1) Closed fracture of right hip: QUALIFIERS: Encounter type: initial encounter Qualified Code(s): S72.001A - Fracture of unspecified part of neck of right femur, initial encounter for closed fracture PLAN: Plan Patient is an 84-year-old female who presented to [facility] ED on 08/09/2025 with right hip pain after a fall. # Acute right intratrochanteric femoral fracture - Seen on hip/pelvis x-ray - Patient status post surgery today with Dr. Barajas - Pain control/supportive care - PT/OT - Case management -08/11: Lovenox 28 days postoperatively, PT/OT, case management, supportive care #Chronic heart failure with preserved ejection fraction -Daily weights -I's and O's - Patient seemed dry this a.m. so she was given gentle IV fluids specially she was still n.p.o., vitally stable and saturating 95% on room air, does not appear to be volume overloaded at time of my exam - Follows with cardiology at [facility] - Has diagnosis of heart failure with preserved ejection fraction -Last echo in 11/2023 with EF 70%, normal LV size and function, normal RV size and function, no pulmonary hypertension noted, moderate LA enlargement, no other concerning findings - Unclear if she ever had component of reduced ejection fraction given she is on spironolactone and Entresto as well - Patient's metoprolol continued, if blood pressure remains stable will begin resuming patient's other home medications - Holding on resuming torsemide at this time as patient appears very dry this a.m. and required a little bit of gentle IV fluids, monitoring volume status, will resume pending clinical course -08/11: Blood pressure is vacillated but has been higher today, will resume Entresto, continue metoprolol, is back up in weight and is net positive for this admission so we will resume home torsemide. Resume other home meds as tolerated Chronic medical problems and/or problems not being actively addressed during today's encounter: #GERD -Continue famotidine #Depression/anxiety -Continue home medications #DVT ppx: Lovenox subQ Conchis Carey MD Time spent in the patient's overall evaluation,decision-making process, review of diagnostic data, adjustment of management, discussion with other providers, nursing nursing and ancillary staff involved in patient's care documentation, 37 minutes Charges/Coding Visit Charges Inpatient E&M: 55693 Subs Hosp L2
[2025-08-11] MEDS: SACUBITRIL/VALSARTAN 49-51 MG TABLET 1 EACH PO (22:00)
[2025-08-12 05:34] VITALS: BMI 21.4
[2025-08-12 06:08] VITALS: BP 168/91; PULSE 85; RESP 15; TEMP 36.9; O2SAT 98
[2025-08-12 06:55] LABS: Hematocrit 35.6 % (37-47); Hemoglobin 12.0 g/dL (12.0-15.0); Mean Corp Hgb Conc 33.7 g/dL (32-36); Mean Corpuscular Volume 92.7 fL (81-99); Mean Platelet Vol. 9.4 fl (6.2-12.0); Platelet Count 224 K/mm3 (150-450); RBC Distribution Width CV 13.9 % (11.6-14.6); RBC Distribution Width SD 47.3 fl (35.1-43.9); Red Blood Count 3.84 M/mm3 (4.2-5.4); White Blood Count 15.7 K/mm3 (4.4-11.0)
[2025-08-12 07:19] LABS: Anion Gap 11 (5-15); BUN 19 mg/dL (4-19); BUN/Creat Ratio 34.2 RATIO (10-20); Calcium,Total 8.5 mg/dL (7.6-11.0); Carbon Dioxide 21.7 mmol/L (21.0-32.0); Chloride 102 mmol/L (98-108); Estimated Creatinine Clearance 38.27 ml/min (50-250); Glucose 137 mg/dL (70-99); Potassium 4.3 mmol/L (3.3-5.1)
[2025-08-12] MEDS: Cholecalciferol (VIT D3) 25 MCG TABLET (1,000 UNITS) PO (08:34)
[2025-08-12] MEDS: SACUBITRIL/VALSARTAN 49-51 MG TABLET 1 EACH PO (08:34)
[2025-08-12] MEDS: Senna/Docusate Sodium 1 Tablet 2 TABLET PO (08:34)
[2025-08-12 08:35] VITALS: PULSE 88
[2025-08-12] MEDS: Metoprolol(XL)Succ 25 MG Tablet PO (08:35)
[2025-08-12 08:53] VITALS: BP 145/86; PULSE 88; RESP 18; TEMP 36.6; O2SAT 98
--- NOTE | 2025-08-12 11:45 | CASEMGMT ---
Social Work- SW met with pt and pt dtr to discuss SNF selections. Pt previously provided with SNF and rehab lists. Pt selected TCU. SW completed referral; no bed availability. Pt selected [facility]; SW notified DCA of referral request. [facility] has no available beds. Pt selected [facility] and [place]. DCA notified of referral request. SW remains available to follow. BURKE Cespedes
--- NOTE | 2025-08-12 11:50 | CASEMGMT ---
Addendum entered by Opal Alarcon 08/12/25 14:40: [facility] is foc. Both snfs updated. Opal Alarcon DC Planning Asst. Addendum entered by Opal Alarcon 08/12/25 14:10: Both [facility] and [facility] accepted. SW updated and will obtain foc. Opal Alarcon DC Planning Asst. Original Note: Discharge Planning Referral sent via [facility] to [facility] and [facility]. Opal Alarcon DC Planning Asst.
--- NOTE | 2025-08-12 12:31 | PCM.PN.HOSP ---
Reason for Visit Chief Complaint: Fall with right hip pain Objective Data Objective Data Vital Signs: Vital Signs Temp Pulse Resp BP Pulse Ox O2 Del Method O2 Flow Rate 97.8 F 88 18 145/86 H 98 Room Air 2 08/12/25 08:53 08/12/25 08:53 08/12/25 08:53 08/12/25 08:53 08/12/25 08:53 08/12/25 08:53 08/10/25 12:24 Oxygen Flow Rate (L/min) 2 Oxygen Delivery Method Room Air Weight: 49.7 kg Body Mass Index (BMI) 21.4 Intake & Output: Intake and Output for Last 24 Hours 08/10/25 08/11/25 08/12/25 23:59 23:59 23:59 Intake Total 1818.33 / 1918.33 1500 / 1500 250 / 250 Output Total 1100 / 1100 Balance 718.33 / 818.33 1500 / 1500 250 / 250 Lab / Micro Data 08/12/25 06:48 08/12/25 06:48 Labs: Laboratory Results - last 24 hr 08/12/25 06:48: WBC 15.7 H, RBC 3.84 L, Hgb 12.0, Hct 35.6 L, MCV 92.7, MCH 31.3, MCHC 33.7, RDW Std Deviation 47.3 H, RDW Coeff of Ora 13.9, Plt Count 224, MPV 9.4, Sodium 135, Potassium 4.3, Chloride 102, Carbon Dioxide 21.7, Anion Gap 11, BUN 19, Creatinine 0.57 L, Estim Creat Clear Calc 38.27 L, Est GFR (MDRD) Non-Af 90, BUN/Creatinine Ratio 34.2 H, Glucose 137 H, Calcium 8.5 Rhythm Strip Rhythm Strip: Sinus bradycardia Rate: 58 Ectopy: None
--- NOTE | 2025-08-12 14:10 | CASEMGMT ---
Social Work- SW met with pt to update that [facility] accepted referral. Pt called dtrs Ashleigh and Tanya to discuss FOC. Pt selected [facility]. SW updated DCA on pt FOC. SW updated hospitalist on acceptance. Hospitalist indicated that pt is medically ready and will discharge today. SW updated pt. Plan: [facility]; skilled level of care BURKE Cespedes
[2025-08-12 14:21] VITALS: BP 133/81; PULSE 78; RESP 16; TEMP 36.8; O2SAT 99
--- NOTE | 2025-08-12 14:57 | PCM.TXEXTCAR ---
Diet Diet Order/Speech Therapy: INPATIENT Hospital Diet / Speech Therapy Order(s) 08/10/25 14:21 Diet: Regular - General Routine Orders/Code Status Code Status: Full Code DC O2, CPAP, BIPAP needs Home O2 Discharge instructions: No Wound(s) right elbow: Wound Type: Abrasion right hip: Wound Type: Surgical Incision r hip: Wound Type: Surgical Incision Therapies Weight Bearing: Weight bearing as tolerated (Right lower extremity) Physical Therapy: Eval and Treat Occupational Therapy: Eval and Treat Problem/Diagnosis (1) Closed fracture of right hip: Status: Acute Code(s): S72.001A - Fracture of unspecified part of neck of right femur, initial encounter for closed fracture Plan Patient is an 84-year-old female who presented to [facility] ED on 08/09/2025 with right hip pain after a fall. Hospital course as noted below. Patient discharged to SNF in stable condition on 08/12. 1. Right hip fracture – Orthopedic surgery followed. PT/OT/case management followed. Hip/pelvis x-ray on admit showed an acute intertrochanteric right femoral fracture. S/p right hip cephalomedullary nailing on 08/[address] Barajas. Tolerated procedure well, no intraoperative complications noted. Will continue scheduled Tylenol and provide short course of oxycodone as needed on discharge. DVT prophylaxis with Lovenox for 28 days postoperatively. Weightbearing as tolerated to the right lower extremity. Discharged to SNF in stable condition on 08/12. 2. Chronic HFpEF, hypertension, hyperlipidemia – Follows with cardiology at [facility]. Last office visit on 07/02/2025, reviewed note in [facility]. Diagnosed with HFpEF in 2022 when she presented with a large right-sided pleural effusion requiring thoracentesis. Heart failure has been well-controlled since that time. Normotensive in the ED on this admission. Held Entresto, empagliflozin, torsemide and spironolactone preoperatively but all were able to be resumed by day of discharge. Continue home Toprol and rosuvastatin on discharge as well. 3. GERD – Stable. Continue home famotidine. 4. Anxiety/depression – Stable. Continue home duloxetine. Total clinical time spent by myself addressing the patient's medical issues, reviewing all the data, and collaborating with patient's care team: 37 minutes. Allergies/Procedures Done in Hospital Allergies Environmental Allergies: Uncoded Allergy (Mild, Verified 08/09/25 15:39) PT UNSURE OF REACTION Procedures: EKG and - (Right cephalomedullary nail placement, right hip x-ray x 2, chest x-ray) Type of Care/Length of Stay Estimated LOS: Convalescent Care Less Than 30 days Type of Care Needed: Skilled Rehab Potential: Fair Prognosis: Fair Additional Orders/Day of Discharge H&P will serve as current which was dated: 08/09/25 Day of Discharge: 08/12/25 Discharge Plan Admission Admit Date/Time: 08/09/25 17:31 Primary Reason for Your Visit: Fall with right hip pain Attending Provider: Augustin Ragsdale Primary Care Provider: Alonzo Echeverria Consulting Providers: Augustin Ragsdale; Kye Barajas; Conchis Carey Discharge Orders/Prescriptions Prescriptions: New sennosides-docusate sodium [Stimulant Laxative Plus] 8.6-50 mg Tablet 1 tab PO BID Qty: 0 0RF acetaminophen 500 mg Tablet 1,000 mg PO Q8 14 Days Qty: 0 0RF oxycodone 5 mg Tablet 5 mg PO Q6H PRN PRN (Reason: Pain Score 4-10) 5 Days Qty: 0 0RF enoxaparin 30 mg/0.3 mL Syringe 30 mg subcut DAILY@0600 26 Days Qty: 0 0RF Continued famotidine 20 mg tablet 20 mg PO BID PRN (Reason: acid reflux) duloxetine 60 mg capsule,delayed release(DR/EC) 60 mg PO DAILY Jardiance 25 mg tablet 12.5 mg PO DAILY Patient Comments: pt only takes mon, wed, fri montelukast 10 mg tablet 10 mg PO DAILY metoprolol succinate 25 mg tablet extended release 24 hr 25 mg PO BID rosuvastatin 10 mg tablet 10 mg PO DAILY spironolactone 25 mg tablet 25 mg PO QHS sacubitril-valsartan [Entresto] 49-51 mg tablet 1 tab PO BID torsemide 10 mg tablet 5 mg PO QHS ergocalciferol (vitamin D2) 1,000 unit capsule 1,000 mcg PO DAILY CBD Oral (INFORMATIONAL USE ONLY-PT USES ORAL CBD) capsule See Rx Instructions .ROUTE .COMPLEX Rx Instructions: takes once a day in am biotin 1 mg capsule 1 mg PO DAILY Referrals / Follow Up: Alonzo Echeverria MD [Primary Care Provider, Internal Medicine] Kye Barajas DO [Med Staff - Active Staff, Orthopedics] [facility] Doctor,Out of [Non-Staff, Medical] Disposition Disposition (needs filled in before D/C Order can be placed): Retirement Facility (1) Closed fracture of right hip Qualifiers: Encounter type: initial encounter Qualified Code(s): S72.001A - Fracture of unspecified part of neck of right femur, initial encounter for closed fracture
--- NOTE | 2025-08-12 15:13 | DS.PCM_ITS ---
Providers Date of Admission: 08/09/25 Date of Discharge: 08/12/25 Primary Care Physician: Dr. Alonzo Echeverria MD Consultations 08/09/25 19:01 Consult: Orthopedics Routine Consulting Provider: Kye Barajas Reason for Consult: right hip fracture EMERGENT Consult: No MD Notified: Yes Date Notified: 08/09/25 Time Notified: 19:01 Method of Notification: ED Physician Initiated Reason For Visit: FALL W/ RIGHT HIP FRACTURE Diagnosis Discharge Diagnosis (1) Closed fracture of right hip: Status: Acute Code(s): S72.001A - Fracture of unspecified part of neck of right femur, initial encounter for closed fracture Qualifiers: Encounter type: initial encounter Qualified Code(s): S72.001A - Fracture of unspecified part of neck of right femur, initial encounter for closed fracture Medications at Discharge Home Medications CBD Oral (INFORMATIONAL USE ONLY-PT USES ORAL CBD) See Rx Instructions .Route .COMPLEX 08/09/25 biotin 1 mg capsule 1 mg PO DAILY 08/09/25 duloxetine 60 mg capsule,delayed release 60 mg PO DAILY 08/09/25 empagliflozin 25 mg tablet (Jardiance) 12.5 mg PO DAILY 08/09/25 ergocalciferol (vitamin D2) 1,000 unit capsule 1,000 mcg PO DAILY 08/09/25 famotidine 20 mg tablet 20 mg PO BID PRN acid reflux 08/09/25 metoprolol succinate 25 mg tablet,extended release 24 hr 25 mg PO BID 08/09/25 montelukast 10 mg tablet 10 mg PO DAILY 08/09/25 rosuvastatin 10 mg tablet 10 mg PO DAILY 08/09/25 sacubitril 49 mg-valsartan 51 mg tablet (Entresto) 1 tab PO BID 08/09/25 spironolactone 25 mg tablet 25 mg PO QHS 08/09/25 torsemide 10 mg tablet 5 mg PO QHS 08/09/25 acetaminophen 500 mg tablet 1,000 mg (2 x 500 mg) PO Q8 14 days #0 tabs 08/12/25 enoxaparin 30 mg/0.3 mL subcutaneous syringe 30 mg (0.3 mL) subcut DAILY@0600 26 days #0 mL 08/12/25 oxycodone 5 mg tablet 5 mg PO Q6H PRN PRN Pain Score 4-10 5 days #0 tabs 08/12/25 sennosides 8.6 mg-docusate sodium 50 mg tablet (Stimulant Laxative Plus) 1 tab PO BID #0 tabs 08/12/25 Hospital Course Operations - (Right hip cephalomedullary nailing) Procedures EKG and - (Hip x-ray x 2, chest x-ray) Summary of Care Provided Minutes Spent on Discharge: 37 Hospital Course: Patient is an 84-year-old female who presented to [facility] ED on 08/09/2025 with right hip pain after a fall. Hospital course as noted below. Patient discharged to SNF in stable condition on 08/12. 1. Right hip fracture – Orthopedic surgery followed. PT/OT/case management followed. Hip/pelvis x- ray on admit showed an acute intertrochanteric right femoral fracture. S/p right hip cephalomedullary nailing on 08/[address] Barajas. Tolerated procedure well, no intraoperative complications noted. Will continue scheduled Tylenol and provide short course of oxycodone as needed on discharge. DVT prophylaxis with Lovenox for 28 days postoperatively. Weightbearing as tolerated to the right lower extremity. Discharged to SNF in stable condition on 08/12. 2. Chronic HFpEF, hypertension, hyperlipidemia – Follows with cardiology at [facility]. Last office visit on 07/02/2025, reviewed note in [facility]. Diagnosed with HFpEF in 2022 when she presented with a large right-sided pleural effusion requiring thoracentesis. Heart failure has been well-controlled since that time. Normotensive in the ED on this admission. Held Entresto, empagliflozin, torsemide and spironolactone preoperatively but all were able to be resumed by day of discharge. Continue home Toprol and rosuvastatin on discharge as well. 3. GERD – Stable. Continue home famotidine. 4. Anxiety/depression – Stable. Continue home duloxetine. Total clinical time spent by myself addressing the patient's medical issues, reviewing all the data, and collaborating with patient's care team: 37 minutes. Physical Exam Narrative General: Alert, no apparent distress HEENT: Atraumatic, normocephalic Eyes: Anicteric, normal conjunctiva, extraocular movements grossly intact Neck: Supple Respiratory: Clear to auscultation bilaterally, normal respiratory effort Cardiovascular: Regular rate and rhythm GI: Soft, nontender, nondistended Extremities: No edema, presently has compression stockings on Musculoskeletal: Moving all extremities in bed Neuro: No overt focal neurological deficits Skin: No rashes appreciated Psych: Cooperative Weight / BMI Weight Weight: 49.7 kg Body Mass Index (BMI) 21.4 ABG / Lab / Microbiology Data 08/12/25 06:48 08/12/25 06:48 Laboratory: Laboratory Results - last 24 hr 08/12/25 06:48: WBC 15.7 H, RBC 3.84 L, Hgb 12.0, Hct 35.6 L, MCV 92.7, MCH 31.3, MCHC 33.7, RDW Std Deviation 47.3 H, RDW Coeff of Ora 13.9, Plt Count 224, MPV 9.4, Sodium 135, Potassium 4.3, Chloride 102, Carbon Dioxide 21.7, Anion Gap 11, BUN 19, Creatinine 0.57 L, Estim Creat Clear Calc 38.27 L, Est GFR (MDRD) Non-Af 90, BUN/Creatinine Ratio 34.2 H, Glucose 137 H, Calcium 8.5 D/C Instructions DC O2, CPAP, BIPAP Needs Home O2 Discharge instructions: No Meaningful Use Info Meaningful Use Meaningful Use Diagnoses (Choose all that apply): None applicable Discharge Plan Admission Admit Date/Time: 08/09/25 17:31 Primary Reason for Your Visit: Fall with right hip pain Attending Provider: Augustin Ragsdale Primary Care Provider: Alonzo Echeverria Consulting Providers: Augustin Ragsdale; Kye Barajas; Conchis Carey Discharge Orders/Prescriptions Prescriptions: New sennosides-docusate sodium [Stimulant Laxative Plus] 8.6-50 mg Tablet 1 tab PO BID Qty: 0 0RF acetaminophen 500 mg Tablet 1,000 mg PO Q8 14 Days Qty: 0 0RF oxycodone 5 mg Tablet 5 mg PO Q6H PRN PRN (Reason: Pain Score 4-10) 5 Days Qty: 0 0RF enoxaparin 30 mg/0.3 mL Syringe 30 mg subcut DAILY@0600 26 Days Qty: 0 0RF Continued famotidine 20 mg tablet 20 mg PO BID PRN (Reason: acid reflux) duloxetine 60 mg capsule,delayed release(DR/EC) 60 mg PO DAILY Jardiance 25 mg tablet 12.5 mg PO DAILY Patient Comments: pt only takes mon, wed, fri montelukast 10 mg tablet 10 mg PO DAILY metoprolol succinate 25 mg tablet extended release 24 hr 25 mg PO BID rosuvastatin 10 mg tablet 10 mg PO DAILY spironolactone 25 mg tablet 25 mg PO QHS sacubitril-valsartan [Entresto] 49-51 mg tablet 1 tab PO BID torsemide 10 mg tablet 5 mg PO QHS ergocalciferol (vitamin D2) 1,000 unit capsule 1,000 mcg PO DAILY CBD Oral (INFORMATIONAL USE ONLY-PT USES ORAL CBD) capsule See Rx Instructions .ROUTE .COMPLEX Rx Instructions: takes once a day in am biotin 1 mg capsule 1 mg PO DAILY Referrals / Follow Up: Alonzo Echeverria MD [Primary Care Provider, Internal Medicine] Kye Barajas DO [Med Staff - Active Staff, Orthopedics] [facility] Doctor,Out of [Non-Staff, Medical] Disposition Disposition (needs filled in before D/C Order can be placed): [facility] Charges/Coding Visit Charges Inpatient E&M: 09752 Disch Hosp >30min
--- NOTE | 2025-08-12 15:33 | CASEMGMT ---
Social Work Physician updated and pt is ready for discharge today. 7000 convalescent form completed in [facility]. SW met with pt and they are agreeable to discharge plan as stated above. DCA and bedside nurse notified of discharge. DCA to complete all final arrangements and notifications. Disposition:[facility], skilled level of care BURKE Cespedes
--- NOTE | 2025-08-12 15:52 | CASEMGMT ---
Discharge Planning Discharge orders, signed med list, and transport time sent via [facility] to [facility]. Physicians will transport pt by wheelchair at 6:30. Nursing, SW, and pt updated. Pt states that she will update her family. Opal Alarcon DC Planning Asst.
--- NOTE | 2025-08-12 16:17 | CHAPLAIN ---
Type of Pastoral Visit _x__ Initial Visit ___ Follow-up Visit ___ On-call Visit ___ General Patient Visit ___ Spiritual Assessment ___ Family Conference ___ Bereavement ___ Rapid Response ___ Code Blue ___ Other (describe below) Pastoral Care Referral From _x__ Patient ___ Family ___ Nurse ___ Physician ___ Science Technician ___ Fuel Quality Tech ___ Other (describe below) Sacrament/Intervention _x__ Active listening ___ Anointing ___ Confucianist ___ Bereavement ___ Communion _x__ Agnieszka exploration ___ _x__ Life review _x__ Prayer ___ Reconciliation ___ Sacrament of Sick _x__ Supportive presence ___ Wedding ___ Other (describe below) Pastoral Comments patient is welcoming and expresses "how things could have been worse"; pt is trying to have a good attitude she says and exemplifies that in the conversation with hopeful and kind thoughts; pt identifies as a Protestant believer and has found her peace and hope in that; pt was in 2022 and speaks of her adjustments after about 64 years of marriage; pt has good family but not all live in the state; pt is needing to make a decision of what is available in SNF; pt welcomes prayer for decisions and her healing
--- NOTE | 2025-08-12 16:40 | PHA.DC.MR.R ---
Pharmacy [place] Med Reconciliation Pharmacy Service has performed discharge medication reconciliation for this patient. The patient's discharge medication list was reviewed for discrepancies and discrepancies were resolved. Medications at Discharge Home Medications CBD Oral (INFORMATIONAL USE ONLY-PT USES ORAL CBD) See Rx Instructions .Route .COMPLEX 08/09/25 biotin 1 mg capsule 1 mg PO DAILY 08/09/25 duloxetine 60 mg capsule,delayed release 60 mg PO DAILY 08/09/25 empagliflozin 25 mg tablet (Jardiance) 12.5 mg PO DAILY 08/09/25 ergocalciferol (vitamin D2) 1,000 unit capsule 1,000 mcg PO DAILY 08/09/25 famotidine 20 mg tablet 20 mg PO BID PRN acid reflux 08/09/25 metoprolol succinate 25 mg tablet,extended release 24 hr 25 mg PO BID 08/09/25 montelukast 10 mg tablet 10 mg PO DAILY 08/09/25 rosuvastatin 10 mg tablet 10 mg PO DAILY 08/09/25 sacubitril 49 mg-valsartan 51 mg tablet (Entresto) 1 tab PO BID 08/09/25 spironolactone 25 mg tablet 25 mg PO QHS 08/09/25 torsemide 10 mg tablet 5 mg PO QHS 08/09/25 acetaminophen 500 mg tablet 1,000 mg (2 x 500 mg) PO Q8 14 days #0 tabs 08/12/25 enoxaparin 30 mg/0.3 mL subcutaneous syringe 30 mg (0.3 mL) subcut DAILY@0600 26 days #0 mL 08/12/25 oxycodone 5 mg tablet 5 mg PO Q6H PRN PRN Pain Score 4-10 5 days #0 tabs 08/12/25 sennosides 8.6 mg-docusate sodium 50 mg tablet (Stimulant Laxative Plus) 1 tab PO BID #0 tabs 08/12/25
--- NOTE | 2025-08-12 17:07 | NURSING ---
report called and given to Arleth at [facility]
== END 2025-08-12 18:44 | disposition skilled nursing facility (03) | DRG 481 ==
LOC: ED 17:25 → MS3 17:37
PROVIDERS: Internal Medicine; Student in an Organized Health Care Education/Training Program; Admitting Provider Hospitalist; Emergency Provider Emergency Medicine; PCP Internal Medicine; Visit Provider Hospitalist
PROC: 0QS636Z Reposition Right Upper Femur with Intramedullary Internal Fixation Device, Percutaneous Approach (ICD-10-PCS; CPT 27245; principal; 2025-08-10 10:00)
DX: S72.141A Displaced intertrochanteric fracture of right femur, initial encounter for closed fracture (principal); I50.32 Chronic diastolic (congestive) heart failure; E78.5 Hyperlipidemia, unspecified; I11.0 Hypertensive heart disease with heart failure; F32.A Depression, unspecified; S50.311A Abrasion of right elbow, initial encounter; W01.0XXA Fall on same level from slipping, tripping and stumbling without subsequent striking against object, initial encounter; K21.9 Gastro-esophageal reflux disease without esophagitis; F41.9 Anxiety disorder, unspecified; Z79.899 Other long term (current) drug therapy
CPT/HCPCS: 36415; 71045; 73502; 76000; 80048; 80053; 83880; 85025; 85027; 85610; 85730; 86850; 86900; 86901; 93005; 94668; 97110; 97116; 97162; 97166; 97530; 97535; 99285; C1776; A4216; J1938; J2405